=== PATIENT | male | born 1990 | race Two or more races ===

== ENCOUNTER 2017-07-31 12:15 | Emergency (ER) | payer MEDICARE, MEDICAID ==
[~2017-07-31] VITALS: Ht 180.3 cm; Wt 85.3 kg
[2017-07-31 12:15] VITALS: BP 102/79
== END 2017-07-31 12:43 | disposition home or self-care (01) ==
LOC: ER 12:17
DX: J40 Bronchitis, not specified as acute or chronic (principal); F31.9 Bipolar disorder, unspecified
CPT/HCPCS: A4606; Z7610